=== PATIENT | male | born 1935 | race Caucasian/White ===

== ENCOUNTER → 2018-01-26 | Outpatient (CLI) | payer SELFPAY ==
[~2018-01-26] MED LIST: ALBUDR INH; DIG125 PO; FOLTX PO; FURO-47 PO; IRO150 PO; LIN600 PO; MULT1CAP59 PO; WAR1 PO; WAR5 PO; [UNRECOGNIZED DRUG - CODE] TOP
--- NOTE | 2018-01-26 13:33 | RADIOLOGY IMAGING REPORT ---
FACILITY: [facility] PATIENT NAME: Guille Rincon : 1935 MR: [id number] V: [id number] EXAM DATE: ORDERING PHYSICIAN: JOCELYN DAVIS TECHNOLOGIST: Location: [facility] Patient: Guille Rincon : 1935 Visit/Account:[id number] Date of Sevice: 01/26/2018 Exam type: VENOUS DOPP LOW LEFT EXTREMITY History: Localized swelling and lump in left lower extremity Comparison: None. Findings: There are several fatty replaced lymph nodes in the left inguinal region. The left common femoral vein superficial femoral vein posterior tibial vein peroneal vein anterior ti bial veins are compressible and demonstrated augmentation. The left popliteal vein was compressible and demonstrated augmentation however there is a small amount of echogenic material within the distal left popliteal vein which likely represents a small amount of chronic thrombus. There is soft tissu e edema noted in the anterior left thigh IMPRESSION: 1. Small amount of echogenic material in the distal left popliteal artery likely a small amount of o ld chronic thrombus which is nonocclusive. Soft tissue edema noted in the anterior left thigh Report Dictated By: Marta Lambert MD at 01/26/2018 1:21 PM Report E-Signed By: Marta Lambert MD at 01/26/2018 1:30 PM WSN:[email or web address]
== END ==
LOC: RAD 11:57
PROVIDERS: ATTEND Family Medicine
DX: R22.42 Localized swelling, mass and lump, left lower limb (principal)